=== PATIENT | female | born 1995 | race Caucasian/White ===

== ENCOUNTER 2018-05-04 11:26 | Emergency (ER) | payer OTHER ==
[2018-05-04] MEDS ORDERED: ONDANSETRON 4 MG/2 ML VIAL IVP ONE (11:52)
[2018-05-04] MEDS ORDERED: NS 1,000 ML IV ONE (11:52)
[2018-05-04] MEDS ORDERED: PANTOPRAZOLE SODIUM 40 MG VIAL IVP ONE (12:06)
[2018-05-04 12:18] LABS: PLATELET COUNT 228 10^3/uL (150-400)
--- NOTE | 2018-05-04 13:23 | EDPHY ---
H & P Time Seen by Provider: 05/04/18 11:59 HPI/ROS: CHIEF COMPLAINT: Hematemesis, abdominal pain HISTORY OF PRESENT ILLNESS: 22-year-old female presents to the emergency department with hematemesis and abdominal pain. Patient states that she has had nausea and intermittent abdominal pain since January. She saw her primary care provider and was taking [id number] antacid type medication. It was helpful and then she has not taken it for quite some time. She states that she has been nauseous for several weeks and then when she was vomiting today she noted bright red blood. She states that her pain is worse with certain foods and especially she drinks alcohol. She denies back pain. Denies chest pain or difficulty breathing. Denies urinary symptoms. Denies . REVIEW OF SYSTEMS: Constitutional: No fever, no chills. Eyes: No double or blurry vision. ENT: No sore throat. Respiratory: No cough, no shortness of breath. Cardiac: No chest pain. Gastrointestinal: As above. No diarrhea. Genitourinary: No dysuria. Musculoskeletal: No neck or back pain. Skin: No rashes. Neurological: No headache. Past Medical/Surgical History: GERD Social History: Single Smoking Status: Never smoked Physical Exam: General Appearance: Alert, no distress. Afebrile. Vital signs are stable. Eyes: Pupils equal and round. Extraocular motions are all intact. ENT: Mouth: Mucous membranes moist. Respiratory: No wheezing, rhonchi, or rales, lungs are clear to auscultation. Cardiovascular: Regular rate and rhythm. Gastrointestinal: Abdomen is soft and nontender, no masses, no rebound or guarding, bowel sounds normal. No CVA tenderness bilaterally. Neurological: Alert and oriented x 3, cranial nerves II through XII grossly intact Skin: Warm and dry, no rashes. Musculoskeletal: Nontender to palpate along the cervical, thoracic or lumbar spine. Neck is supple. Extremities: Full range of motion and no peripheral edema. Psychiatric: Patient is oriented X 3, there is no agitation. Constitutional: Initial Vital Signs Temperature (C) 36.6 C 05/04/18 11:34 Heart Rate 71 05/04/18 11:34 Respiratory Rate 16 05/04/18 11:34 Blood Pressure 113/79 05/04/18 11:34 O2 Sat (%) 98 05/04/18 11:34 O2 Delivery Mode Room Air Allergies/Adverse Reactions: No Known Allergies Allergy (Verified 05/04/18 11:33) Home Medications: Medication Instructions Recorded Mirena 06/13/12 Ondansetron Odt [Zofran Odt] 4 mg PO Q4PRN #8 tab 05/04/18 Sucralfate [Carafate 1 GM (*)] 1 gm PO QID 7 Days tab 05/04/18 Wellbutrin 100mg (*) 05/04/18 Medical Decision Making ED Course/Re-evaluation: 22-year-old female presents to the emergency department with hematemesis and abdominal pain. The patient has normal laboratory studies including normal complete blood cell count normal chemistries. She received IV normal saline as well as IV Protonix. She is feeling much better. I did explain to the patient that she likely has peptic ulcer disease and will require close follow-up with membership coordinator for likely endoscopy. Patient was comfortable with this plan. She was given a prescription for Zofran to use as needed for nausea as well as prescription for Carafate. She will use over- the-counter Prilosec twice daily for 2 weeks and then once daily thereafter. I do not think imaging studies are indicated. Patient's abdomen is benign. Differential Diagnosis: Including but not limited to GERD, peptic ulcer disease, esophagitis, cholecystitis, cholelithiasis - Data Points Laboratory Results: Laboratory Results 05/04/18 11:50 05/04/18 11:50 05/04/18 05/04/18 05/04/18 11:50 11:50 11:50 WBC 11.10 10^3/uL H 10^3/uL (3.80-9.50) RBC 4.85 10^6/uL 10^6/uL (4.18-5.33) Hgb 15.8 g/dL g/dL (12.6-16.3) Hct 45.6 % % (38.0-47.0) MCV 94.0 fL fL (81.5-99.8) MCH 32.6 pg pg (27.9-34.1) MCHC 34.6 g/dL g/dL (32.4-36.7) RDW 13.1 % % (11.5-15.2) Plt Count 228 10^3/uL 10^3/uL (150-400) MPV 11.1 fL fL (8.7-11.7) Neut % (Auto) 77.9 % H % (39.3-74.2) Lymph % (Auto) 15.3 % % (15.0-45.0) Sabine % (Auto) 5.2 % % (4.5-13.0) Eos % (Auto) 0.8 % % (0.6-7.6) Baso % (Auto) 0.5 % % (0.3-1.7) Nucleat RBC Rel Count 0.0 % % (0.0-0.2) Absolute Neuts (auto) 8.64 10^3/uL H 10^3/uL (1.70-6.50) Absolute Lymphs (auto) 1.70 10^3/uL 10^3/uL (1.00-3.00) Absolute Monos (auto) 0.58 10^3/uL 10^3/uL (0.30-0.80) Absolute Eos (auto) 0.09 10^3/uL 10^3/uL (0.03-0.40) Absolute Basos (auto) 0.06 10^3/uL 10^3/uL (0.02-0.10) Absolute Nucleated RBC 0.00 10^3/uL 10^3/uL (0-0.01) Immature Gran % 0.3 % % (0.0-1.1) Immature Gran # 0.03 10^3/uL 10^3/uL (0.00-0.10) Sodium 139 mEq/L mEq/L (135-145) Potassium 4.4 mEq/L mEq/L (3.3-5.0) Chloride 110 mEq/L mEq/L (97-110) Carbon Dioxide 19 mEq/l L mEq/l (22-31) Anion Gap 10 mEq/L mEq/L (8-16) BUN 9 mg/dL mg/dL (7-23) Creatinine 0.6 mg/dL mg/dL (0.6-1.0) Estimated GFR > 60 Glucose 85 mg/dL mg/dL (70-100) Calcium 9.5 mg/dL mg/dL (8.5-10.4) Beta HCG, Qual NEGATIVE Medications Given: Discontinued Medications Sodium Chloride (Ns) 1,000 mls @ 0 mls/hr IV ONCE ONE PRN Reason: Wide Open Stop: 05/04/18 11:53 Last Admin: 05/04/18 11:54 Dose: 1,000 mls Ondansetron HCl (Zofran) 4 mg IVP EDNOW ONE Stop: 05/04/18 11:53 Last Admin: 05/04/18 11:55 Dose: 4 mg Pantoprazole Sodium (Protonix) 40 mg IVP EDNOW ONE Stop: 05/04/18 12:07 Last Admin: 05/04/18 12:11 Dose: 40 mg Departure - Departure Disposition: Home, Routine, Self-Care Clinical Impression: Peptic ulcer disease Hematemesis Qualifiers: Nausea presence: with nausea Qualified Code(s): K92.0 - Hematemesis Condition: Good Instructions: Peptic Ulcer (ED), Hematemesis (ED) Additional Instructions: Zofran as needed for nausea. Omeprazole, [id number], twice daily for the 1st 2 weeks and then once daily thereafter. Carafate as need for abdominal pain. Referrals: Soumya Briseno MD [Medical Doctor] - As per Instructions (Can Repairer on- call) Prescriptions: Ondansetron Odt [Zofran Odt] 4 mg PO Q4PRN #8 tab Sucralfate [Carafate 1 GM (*)] 1 gm PO QID 7 Days tab
[2018-05-04 13:33] VITALS: BP 125/78
== END 2018-05-04 13:33 | disposition home or self-care (01) ==
DX: K27.9 Peptic ulcer, site unspecified, unspecified as acute or chronic, without hemorrhage or perforation (principal)
CPT/HCPCS: 96374; J2405